=== PATIENT | male | born 1955 | race Caucasian/White ===

== ENCOUNTER 2016-09-10 22:04 | Observation (INO) | payer MEDICAID ==
[~2016-09-10] VITALS: Ht 172.7 cm; Wt 70.0 kg
[~2016-09-10 22:04] MED LIST: ACET325S8 PO
[2016-09-10 22:14] VITALS: BP 143/70; PULSE 85; RESP 18; TEMP 98.1; O2SAT 93
[2016-09-10 22:21] VITALS: BP_SYST 129; BP_SYST 143; BP_DIAS 57; BP_DIAS 70; PULSE 83; RESP 18; O2SAT 98
[2016-09-10] MEDS ORDERED: PRED5TAB PO (22:21)
[2016-09-10 22:22] VITALS: O2SAT 92
--- NOTE | 2016-09-10 22:23 | PD ---
HPI Chief Complaint: Chest Pain Time Seen by Provider: 22:05 Travel History International Travel<30 days: No Contact w/Intl Traveler<30days: No Traveled to known affect area: No History of Present Illness HPI This is a 52-year-old male who presents via EMS for evaluation of chest pain. The patient reports a history of colon cancer that has metastasized into his chest. He was recently receiving chemotherapy treatments in [place] near [place], most recent one month ago, but decided to cease chemotherapy efforts and return here to the [facility]. He is currently residing at the [facility]. He reports today at approximately 5:30 PM shortly after work he developed left-sided chest pain which she describes as sharp, constant, worse with walking and inspiration. He drank 4 beers an effort to alleviate the symptoms however the chest pain has persisted which prompted them to call the paramedics. He received 3 doses of sublingual nitroglycerin and has pain has reduced to a 4 out of 10. He took a full dose aspirin earlier today. He denies any shortness of breath, diaphoresis, cough or congestion, nausea or vomiting, abdominal pain, calf swelling, history of DVT or PE. He denies any personal history of coronary artery disease. He does endorse a history of hypertension, tobacco use. He reports that he has had similar pain 3-4 times over the course of the past few months but typically it resolves on its own. He has no other complaints at this time. [facility] Past Medical History Arthritis: Yes (IN BIG TOE) Diminished Hearing: No Hypertension: Yes Immunizations Current: Yes Social History Alcohol Use: Yes (4-5 BEERS PER DAY) Tobacco Use: Yes (1/2 PPD) Substance Use: Yes Allergies-Medications (Allergen,Severity, Reaction): Coded Allergies: No Known Allergies (Verified , 06/30/14) Reported Meds & Prescriptions Reported Meds & Active Scripts Active Reported Prednisone 5 Mg Tab 5 Mg PO DAILY Review of Systems Except as stated in HPI: all other systems reviewed are Neg Physical Exam Narrative GENERAL: Well-developed well-nourished male in no acute distress answering questions appropriately vital signs reviewed SKIN: Warm and dry. HEAD: Atraumatic. Normocephalic. EYES: Pupils equal and round. No scleral icterus. No injection or drainage. ENT: No nasal bleeding or discharge. Mucous membranes pink and moist. NECK: Trachea midline. No JVD. CARDIOVASCULAR: Regular rate and rhythm. No murmur appreciated. RESPIRATORY: No accessory muscle use. Clear to auscultation. Breath sounds equal bilaterally. No crackles no wheezing or rhonchi GASTROINTESTINAL: Abdomen soft, non-tender, nondistended. Hepatic and splenic margins not palpable. MUSCULOSKELETAL: No obvious deformities. No lower extremity edema, negative Homans bilaterally. NEUROLOGICAL: Awake and alert. No obvious cranial nerve deficits. Motor grossly within normal limits. Normal speech. PSYCHIATRIC: Appropriate mood and affect; insight and judgment normal. Data Data Last Documented VS Vital Signs Date Time Temp Pulse Resp B/P Pulse Ox O2 Delivery O2 Flow Rate FiO2 09/10/16 22:22 92 Room Air 09/10/16 22:21 83 18 143/70 129/57 09/10/16 22:14 98.1 Orders Electrocardiogram (09/10/16 22:18) Basic Metabolic Panel (Bmp) (09/10/16 22:18) Ckmb (Isoenzyme) Profile (09/10/16 22:18) Complete Blood Count With Diff (09/10/16 22:18) Magnesium (Mg) (09/10/16 22:18) Prothrombin Time / Inr (Pt) (09/10/16 22:18) Act Partial Throm Time (Ptt) (09/10/16 22:18) Troponin I (09/10/16 22:18) Chest, Single Ap (09/10/16 22:18) Ecg Monitoring (09/10/16 22:18) Bilateral Bp Monitoring (09/10/16 22:18) Iv Access Insert/Monitor (09/10/16 22:18) Oximetry (09/10/16 22:18) Oxygen Administration (09/10/16 22:18) Morphine Inj (Morphine Inj) (09/10/16 22:30) Sodium Chloride 0.9% Flush (Ns Flush) (09/10/16 22:30) Ct Pulmonary Angiogram (09/10/16 22:18) Iohexol 350 Inj (Omnipaque 350 Inj) (09/10/16 23:39) Admit Order (Ed Use Only) (09/11/16 00:17) Labs Laboratory Tests Test 09/10/16 22:25 White Blood Count 8.3 TH/MM3 Red Blood Count 4.26 MIL/MM3 Hemoglobin 13.5 GM/DL Hematocrit 39.0 % Mean Corpuscular Volume 91.6 FL Mean Corpuscular Hemoglobin 31.7 PG Mean Corpuscular Hemoglobin 34.7 % Concent Red Cell Distribution Width 13.4 % Platelet Count 204 TH/MM3 Mean Platelet Volume 7.8 FL Neutrophils (%) (Auto) 60.2 % Lymphocytes (%) (Auto) 29.4 % Monocytes (%) (Auto) 7.6 % Eosinophils (%) (Auto) 1.4 % Basophils (%) (Auto) 1.4 % Neutrophils # (Auto) 5.0 TH/MM3 Lymphocytes # (Auto) 2.4 TH/MM3 Monocytes # (Auto) 0.6 TH/MM3 Eosinophils # (Auto) 0.1 TH/MM3 Basophils # (Auto) 0.1 TH/MM3 CBC Comment DIFF FINAL Differential Comment Prothrombin Time 10.0 SEC Prothromb Time International 0.9 RATIO Ratio Activated Partial 25.8 SEC Thromboplast Time Sodium Level 140 MEQ/L Potassium Level 3.3 MEQ/L Chloride Level 106 MEQ/L Carbon Dioxide Level 24.8 MEQ/L Anion Gap 9 MEQ/L Blood Urea Nitrogen 8 MG/DL Creatinine 0.71 MG/DL Estimat Glomerular Filtration 114 ML/MIN Rate Random Glucose 103 MG/DL Calcium Level 8.1 MG/DL Magnesium Level 2.1 MG/DL Total Creatine Kinase 74 U/L Troponin I LESS THAN 0.02 NG/ML MDM Medical Decision Making Medical Screen Exam Complete: Yes Emergency Medical Condition: Yes Medical Record Reviewed: Yes Interpretation(s) EKG reveals sinus rhythm, Q waves noted in V1 and V2 Differential Diagnosis ACS, angina, pulmonary embolism, pericarditis, myocarditis, costochondritis, spontaneous pneumothorax, hemothorax Narrative Course This is a 60-year-old male reports a history of hypertension, tobacco use, colon cancer which has metastasized to the chest, recent chemotherapy, presents for evaluation of left-sided sharp chest pain which started at 5:30 PM and has been constant since. The patient will be placed on ECG monitoring and pulse oximetry. A 12-lead EKG will be obtained. Plan is for basic lab work, cardiac enzymes, chest x-ray, given his history of malignancy with recent chemotherapy, CT pulmonary angiogram has been ordered. The patient has taken a full dose aspirin today, was given 3 sublingual nitroglycerin via EMS continues to have decreased but persistent pain and therefore 4 mg of morphine has been ordered. 2245: At my shift the patient was signed out to Dr. Schultz pending lab work and imaging studies. Procedures EKG Prior to Arrival: Yes Venkatesh Gutierrez Sep 10, 2016 22:23
[2016-09-10] MEDS ORDERED: MORPHINE SULFATE 4 MG/ML INJ IV PUSH ONE (22:30)
[2016-09-10] MEDS ORDERED: SODIUM CHLORIDE 0.9% FLUSH 10 ML FLUSH IVF PRN (22:30)
--- NOTE | 2016-09-10 22:39 | RADRPT ---
EXAM DATE/TIME: 09/10/2016 22:24 [facility] COMPARISON: No previous studies available for comparison. INDICATIONS : Chest pain. Short of breath. MEDICAL HISTORY : Carcinoma, lung. SURGICAL HISTORY : Infusaport. ENCOUNTER: Initial ACUITY: 1 day PAIN SCORE: 3/10 LOCATION: Bilateral chest FINDINGS: A single view of the chest demonstrates the lungs to be symmetrically aerated without evidence of mas s, infiltrate or effusion. Left-sided portacatheter with tip in the cavoatrial junction. The cardiome diastinal contours are unremarkable. Osseous structures are intact. CONCLUSION: No acute disease. Toney Rogers MD on September 10, 2016 at 22:36 Board Certified Radiologist. This report was verified electronically.
[2016-09-10 22:57] LABS: BASOPHIL # 0.1 TH/MM3 (0-0.2); BASOPHIL % 1.4 % (0.0-2.0); EOSINOPHIL # 0.1 TH/MM3 (0-0.4); EOSINOPHIL % 1.4 % (0.0-4.0); HEMO FLAGS DIFF FINAL; LYMPH % 29.4 % (9.0-44.0); LYMPHOCYTE # 2.4 TH/MM3 (1.0-4.8); MEAN CELL VOLUME 91.6 FL (80.0-100.0); MEAN CORPUSCULAR HEMOGLOBIN 31.7 PG (27.0-34.0); MEAN CORPUSCULAR HGB CONC 34.7 % (32.0-36.0); MONO % 7.6 % (0.0-8.0); NEUT % 60.2 % (16.0-70.0); PLATELET COUNT 204 TH/MM3 (150-450); RED BLOOD COUNT 4.26 MIL/MM3 (4.50-5.90); RED CELL DISTRIBUTION WIDTH 13.4 % (11.6-17.2); WHITE BLOOD COUNT 8.3 TH/MM3 (4.0-11.0)
--- NOTE | 2016-09-10 23:00 | PD ---
Physical Exam Date Seen by Provider: Sep 10, 2016 Time Seen by Provider: 22:59 Narrative The patient is a 60-year-old male was initially evaluated by the mid-level provider. Please refer to the initial history, physical, diagnostic evaluation , and treatment modality plan. Data Data Last Documented VS Vital Signs Date Time Temp Pulse Resp B/P Pulse Ox O2 Delivery O2 Flow Rate FiO2 09/10/16 22:22 92 Room Air 09/10/16 22:21 83 18 143/70 129/57 09/10/16 22:14 98.1 Orders Electrocardiogram (09/10/16 22:18) Basic Metabolic Panel (Bmp) (09/10/16 22:18) Ckmb (Isoenzyme) Profile (09/10/16 22:18) Complete Blood Count With Diff (09/10/16 22:18) Magnesium (Mg) (09/10/16 22:18) Prothrombin Time / Inr (Pt) (09/10/16 22:18) Act Partial Throm Time (Ptt) (09/10/16 22:18) Troponin I (09/10/16 22:18) Chest, Single Ap (09/10/16 22:18) Ecg Monitoring (09/10/16 22:18) Bilateral Bp Monitoring (09/10/16 22:18) Iv Access Insert/Monitor (09/10/16 22:18) Oximetry (09/10/16 22:18) Oxygen Administration (09/10/16 22:18) Morphine Inj (Morphine Inj) (09/10/16 22:30) Sodium Chloride 0.9% Flush (Ns Flush) (09/10/16 22:30) Ct Pulmonary Angiogram (09/10/16 22:18) Iohexol 350 Inj (Omnipaque 350 Inj) (09/10/16 23:39) Labs Laboratory Tests Test 09/10/16 22:25 White Blood Count 8.3 TH/MM3 Red Blood Count 4.26 MIL/MM3 Hemoglobin 13.5 GM/DL Hematocrit 39.0 % Mean Corpuscular Volume 91.6 FL Mean Corpuscular Hemoglobin 31.7 PG Mean Corpuscular Hemoglobin 34.7 % Concent Red Cell Distribution Width 13.4 % Platelet Count 204 TH/MM3 Mean Platelet Volume 7.8 FL Neutrophils (%) (Auto) 60.2 % Lymphocytes (%) (Auto) 29.4 % Monocytes (%) (Auto) 7.6 % Eosinophils (%) (Auto) 1.4 % Basophils (%) (Auto) 1.4 % Neutrophils # (Auto) 5.0 TH/MM3 Lymphocytes # (Auto) 2.4 TH/MM3 Monocytes # (Auto) 0.6 TH/MM3 Eosinophils # (Auto) 0.1 TH/MM3 Basophils # (Auto) 0.1 TH/MM3 CBC Comment DIFF FINAL Differential Comment Prothrombin Time 10.0 SEC Prothromb Time International 0.9 RATIO Ratio Activated Partial 25.8 SEC Thromboplast Time Sodium Level 140 MEQ/L Potassium Level 3.3 MEQ/L Chloride Level 106 MEQ/L Carbon Dioxide Level 24.8 MEQ/L Anion Gap 9 MEQ/L Blood Urea Nitrogen 8 MG/DL Creatinine 0.71 MG/DL Estimat Glomerular Filtration 114 ML/MIN Rate Random Glucose 103 MG/DL Calcium Level 8.1 MG/DL Magnesium Level 2.1 MG/DL Total Creatine Kinase 74 U/L Troponin I LESS THAN 0.02 NG/ML [facility] Medical Record Reviewed: Yes Supervised Visit with LYNN: Yes Interpretation(s) EKG reveals normal sinus rhythm with a rate of 82. Q wave noted in lead V1 and V2. Laboratory Tests Test 09/10/16 22:25 White Blood Count 8.3 TH/MM3 Red Blood Count 4.26 MIL/MM3 Hemoglobin 13.5 GM/DL Hematocrit 39.0 % Mean Corpuscular Volume 91.6 FL Mean Corpuscular Hemoglobin 31.7 PG Mean Corpuscular Hemoglobin 34.7 % Concent Red Cell Distribution Width 13.4 % Platelet Count 204 TH/MM3 Mean Platelet Volume 7.8 FL Neutrophils (%) (Auto) 60.2 % Lymphocytes (%) (Auto) 29.4 % Monocytes (%) (Auto) 7.6 % Eosinophils (%) (Auto) 1.4 % Basophils (%) (Auto) 1.4 % Neutrophils # (Auto) 5.0 TH/MM3 Lymphocytes # (Auto) 2.4 TH/MM3 Monocytes # (Auto) 0.6 TH/MM3 Eosinophils # (Auto) 0.1 TH/MM3 Basophils # (Auto) 0.1 TH/MM3 CBC Comment DIFF FINAL Differential Comment Prothrombin Time 10.0 SEC Prothromb Time International 0.9 RATIO Ratio Activated Partial 25.8 SEC Thromboplast Time Sodium Level 140 MEQ/L Potassium Level 3.3 MEQ/L Chloride Level 106 MEQ/L Carbon Dioxide Level 24.8 MEQ/L Anion Gap 9 MEQ/L Blood Urea Nitrogen 8 MG/DL Creatinine 0.71 MG/DL Estimat Glomerular Filtration 114 ML/MIN Rate Random Glucose 103 MG/DL Calcium Level 8.1 MG/DL Magnesium Level 2.1 MG/DL Total Creatine Kinase 74 U/L Troponin I LESS THAN 0.02 NG/ML Last Impressions Chest X-Ray 09/10/162217 Signed Impressions: Service Date/Time: Saturday, September 10, 2016 22:24 - CONCLUSION: No acute disease. Toney Rogers MD CT Angiography 09/10/162217 Signed Impressions: Service Date/Time: Saturday, September 10, 2016 23:38 - CONCLUSION: 1. No PE is identified. 2. There is a partially calcified soft tissue mass in the anterior mediastinum measuring up to 3.8 cm. The clinical history indicates a known tumor in chest. Suggest correlation with the clinical history to determine if this is a known finding. Differential diagnosis would include metastatic disease, lymphoma, or thymic lesions. Fitz Hernandez MD Differential Diagnosis Differential diagnosis includes acute coronary syndrome, pulmonary embolism, GERD, esophageal spasm, metastatic cancer, gastritis, pancreatitis. Narrative Course I, Dr. Schultz, have reviewed the advance practice practitioner's documentation and am in agreement, met with the patient face to face, made the diagnosis, and the medical decision making was done by me. *My assessment and Findings: The patient is a 60-year-old male was initially evaluated by the mid-level provider. Please refer to the initial history, physical, diagnostic evaluation, and treatment modality plan. The patient was signed out [address] pulmonary angiogram and laboratory evaluation pending. The patient's initial troponin is unremarkable. The patient does state he has a history of colon cancer, was undergoing chemotherapy, however, did not tolerate it. He also states he has a "spot on the lung "from the cancer. He does have a history of hypertension and tobacco use, denies any known history of hyperlipidemia, CAD, diabetes, or significant early family medical history for heart disease. I had a discussion with the patient regarding initial troponin being negative, after discussion was agreed he would be 23 hour observation to the chest pain Center as he does not have a local primary physician or access to healthcare. The patient is comfortable with this plan of care and disposition. The CT pulmonary angiogram is negative for PE, does reveal 3.8 cm anterior chest mass, the patient has a history of chest mass and states that is a known finding, is not acute, I do not believe that is causing his pain. Physician Communication Physician Communication The patient will be a 23 OBS to the [facility] for serial cardiac enzymes and further evaluation by cardiology. Diagnosis Primary Impression: Chest pain Qualified Code: R07.9 - Chest pain, unspecified type Admitting Information Admitting Physician Requests: Observation Condition: Stable Aba Schultz MD Sep 10, 2016 23:00
[2016-09-10 23:13] LABS: ANION GAP 9 MEQ/L (5-15); BICARBONATE 24.8 MEQ/L (21.0-32.0); BLOOD UREA NITROGEN 8 MG/DL (7-18); CHLORIDE 106 MEQ/L (98-107); GLOMERULAR FILTRATION RATE 114 ML/MIN (>89); MAGNESIUM 2.1 MG/DL (1.5-2.5); POTASSIUM 3.3 MEQ/L (3.5-5.1); SODIUM (NA) 140 MEQ/L (136-145)
[2016-09-10 23:14] LABS: APTT (PATIENT) 25.8 SEC (24.3-30.1); INTERNATIONAL NORMALIZED RATIO 0.9 RATIO
[2016-09-10 23:24] LABS: CREATINE KINASE 74 U/L (39-308)
[2016-09-10] MEDS ORDERED: IOHEXOL 350 MG/ML 10 ML VIAL (for RAD DIAG) IV ONE (23:39)
--- NOTE | 2016-09-10 23:57 | RADRPT ---
EXAM DATE/TIME: 09/10/2016 23:38 [facility] COMPARISON: No previous studies available for comparison. INDICATIONS : Chest pain with shortness of breath. IV CONTRAST: 74 cc Omnipaque 350 (iohexol) IV RADIATION DOSE: 23.30 CTDIvol (mGy) MEDICAL HISTORY : Hypertension. Colon cancer. Tumor in chest. SURGICAL HISTORY : None. ENCOUNTER: Initial ACUITY: 1 day PAIN SCALE: 10/10 LOCATION: chest TECHNIQUE: Volumetric scanning of the chest was performed using a pulmonary embolism protocol MIP images were re constructed. Using automated exposure control and adjustment of the mA and/or kV according to patien t size, radiation dose was kept as low as reasonably achievable to obtain optimal diagnostic quality images. DICOM format image data is available electronically for review and comparison. Follow-up recommendations for incidentally detected pulmonary nodules are based at a minimum on nodul e size and patient risk factors according to Fleischner Society Guidelines. FINDINGS: There is respiratory motion artifact. PULMONARY ARTERIES: No filling defects are seen in the pulmonary arteries through the segmental level. LUNGS: There is no consolidation or pneumothorax . No concerning pulmonary nodule is visualized. PLEURAE: There is no pleural thickening or pleural effusion. MEDIASTINUM: Heart and great vessels demonstrate no acute finding. There is moderate atherosclerotic disease of ao rta appear within the anterior mediastinum there is a partially calcified soft tissue mass measuring approximately 3.8 x 2.8 cm. Left chest wall [id number] is present. MUSCULOSKELETAL: There are degenerative changes of the thoracic spine. MISCELLANEOUS: The visualized upper abdominal organs demonstrate no acute abnormality. CONCLUSION: 1. No PE is identified. 2. There is a partially calcified soft tissue mass in the anterior mediastinum measuring up to 3.8 cm . The clinical history indicates a known tumor in chest. Suggest correlation with the clinical histor y to determine if this is a known finding. Differential diagnosis would include metastatic disease, l ymphoma, or thymic lesions. Fitz Hernandez MD on September 10, 2016 at 23:49 Board Certified Radiologist. This report was verified electronically.
[2016-09-11] MEDS ORDERED: ONDANSETRON HCL 4 MG/2 ML VIAL IV PRN (00:30)
[2016-09-11] MEDS ORDERED: ACETAMINOPHEN/HYDROcodone 325 MG/7.5 MG TAB PO PRN (00:30)
[2016-09-11] MEDS ORDERED: ACETAMINOPHEN 500 MG CPLT PO PRN (00:30)
[2016-09-11] MEDS ORDERED: POTASSIUM CHLORIDE 20 MEQ CONTROLLED RELEASE TAB PO ONE (00:30)
[2016-09-11] MEDS ORDERED: SODIUM CHLORIDE 0.9% FLUSH 10 ML FLUSH IV FLUSH PRN (00:30)
[2016-09-11] MEDS ORDERED: NITROGLYCERIN 0.4 MG SL 25 TABS/BTL SL PRN (00:30)
[2016-09-11] MEDS ORDERED: MORPHINE SULFATE 4 MG/ML INJ IV PRN (00:30)
[2016-09-11 01:21] VITALS: BP 127/78; PULSE 71; RESP 18; O2SAT 98
[2016-09-11 02:02] LABS: CREATINE KINASE 64 U/L (39-308)
[2016-09-11 04:39] LABS: CREATINE KINASE 64 U/L (39-308)
[2016-09-11 05:23] VITALS: BP 130/67; PULSE 65; RESP 16; O2SAT 98
--- NOTE | 2016-09-11 08:15 | HHI.HP ---
HPI Primary Care Physician No Primary Care Physician Chief Complaint Chest pain History of Present Illness 60-year-old male with known colon cancer with metastases to chest presents to emergency room for further evaluation of chest pain. Location left anterior chest. Characterized as sharp quick pains. Duration 34 hours. No radiation of pain. No particular position or position may pain better or worse. It did not hurt to take a deep breath. No associated symptoms of nausea, vomiting, or diaphoresis. Endorses it is not uncommon for him to experience similar pain although states yesterday's episode pains increase in frequency and duration therefore he came emergency room for further evaluation of chest pain. Precipitating factors he relates to a known chest tumor. No known relieving factors. Review of Systems General: Quit chemotherapy one month ago. Oncologist located in [place], [place]. Quit chemotherapy due "making me feel worse." Oncologist told him he would require chemotherapy for the rest of his life. No recent illness, weakness, fever, chills, change in appetite. HEENT: No ALEJANDRO, no vision changes, no nasal congestion or drainage, no dysphasia CV: As stated above. Denies any current chest pain or pressure. RESP: No SOB, cough, wheeze, or hemoptysis. History of COPD. GI: No nausea, vomiting, bowel changes, diarrhea, constipation, pain, distention , melena or bloody stools. : No dysuria EXT: No lower leg edema MS: No discomfort or change in ROM NEURO: No difficulty with balance, LOC, or motor/sensory deficits PSYCH: No anxiety or depression. Endorses situational stress regarding cancer diagnosis. SKIN: No rashes, no concerning lesions Past Family Social History Allergies: Coded Allergies: No Known Allergies (Verified , 06/30/14) Past Medical History Colon cancer with metastases to chest, hypertension Past Surgical History MediPort placement, 2 biopsy Reported Medications Reported Prednisone 5 Mg Tab 5 Mg PO DAILY Active Ordered Medications Current Medications Medications (Trade) Dose Ordered Sig/Blanca Route Start Time Stop Time Status Last Admin (Tylenol) 500 mg Q4H PRN PO 09/11/16 00:30 ([place] 7.5-325 Mg) 1 tab Q4H PRN PO 09/11/16 00:30 (Morphine Inj) 2 mg Q4H PRN IV 09/11/16 00:30 (Zofran Inj) 4 mg Q6H PRN IV 09/11/16 00:30 (Nitrostat Sl) 0.4 mg Q5M PRN SL 09/11/16 00:30 (Aspirin) 325 mg DAILY PO 09/11/16 09:00 Family History Noncontributory for early onset cardiovascular disease. Social History No known diabetes or hyperlipidemia. Reports hypertension although not taking any medications currently. Lifelong smoker, currently smokes one half pack daily. Denies any illegal drug use. Endorses occasional alcohol. Currently residing at a homeless [facility]. Past cardiac testing No recent cardiac testing. Remote exercise treadmill stress test in his 20s. Physical Exam Vital Signs Vital Signs Date Time Temp Pulse Resp B/P Pulse Ox O2 Delivery O2 Flow Rate FiO2 09/11/16 06:07 21 09/11/16 05:23 65 16 130/67 98 Room Air 09/11/16 01:21 71 18 127/78 98 Room Air 09/10/16 22:22 92 Room Air 09/10/16 22:22 92 Room Air 09/10/16 22:21 83 18 143/70 98 Room Air 129/57 09/10/16 22:14 98.1 85 18 143/70 93 Physical Exam GENERAL: Alert WN, WD, NAD, pleasant, , thin male. HEAD: NC, AT EYES: Sclera clear, conjunctiva without injection, pupils equal and round ENT: Mucous membranes pink and moist NECK: Supple, no masses, trachea midline CV: RRR, without murmur, rub, gallop, no JVD, S1-S2 no S3-S4. RESP: Clear lungs throughout bilateral, no crackles, wheeze, rhonchi, symmetrical chest rise, nonlabored, able to speak in full sentences ABD: Soft, NT, ND, no masses, positive bowel tones, flat EXT: Pulses +24, no dependent edema MS: Normal tone 4 extremities, nontender, no obvious deformities, full range of motion NEURO: CN II through CN XII grossly intact, motor strength 5/5, gait WNL PSYCH: A+O 3, pleasant affect, appropriate speech, appropriate mood and affect , insight and judgment SKIN: Normal turgor, normal texture Laboratory Laboratory Tests Test 09/10/16 09/11/16 09/11/16 22:25 01:20 03:44 White Blood Count 8.3 Red Blood Count 4.26 Hemoglobin 13.5 Hematocrit 39.0 Mean Corpuscular Volume 91.6 Mean Corpuscular Hemoglobin 31.7 Mean Corpuscular Hemoglobin 34.7 Concent Red Cell Distribution Width 13.4 Platelet Count 204 Mean Platelet Volume 7.8 Neutrophils (%) (Auto) 60.2 Lymphocytes (%) (Auto) 29.4 Monocytes (%) (Auto) 7.6 Eosinophils (%) (Auto) 1.4 Basophils (%) (Auto) 1.4 Neutrophils # (Auto) 5.0 Lymphocytes # (Auto) 2.4 Monocytes # (Auto) 0.6 Eosinophils # (Auto) 0.1 Basophils # (Auto) 0.1 CBC Comment DIFF FINAL Differential Comment Prothrombin Time 10.0 Prothromb Time International 0.9 Ratio Activated Partial 25.8 Thromboplast Time Sodium Level 140 Potassium Level 3.3 Chloride Level 106 Carbon Dioxide Level 24.8 Anion Gap 9 Blood Urea Nitrogen 8 Creatinine 0.71 Estimat Glomerular Filtration 114 Rate Random Glucose 103 Calcium Level 8.1 Magnesium Level 2.1 Total Creatine Kinase 74 64 64 Troponin I LESS THAN 0.02 LESS THAN 0.02 LESS THAN 0.02 Result Diagram: 09/10/16222409/10/162224 Imaging Last Impressions Chest X-Ray 09/10/162217 Signed Impressions: Service Date/Time: Saturday, September 10, 2016 22:24 - CONCLUSION: No acute disease. Toney Rogers MD CT Angiography 09/10/162217 Signed Impressions: Service Date/Time: Saturday, September 10, 2016 23:38 - CONCLUSION: 1. No PE is identified. 2. There is a partially calcified soft tissue mass in the anterior mediastinum measuring up to 3.8 cm. The clinical history indicates a known tumor in chest. Suggest correlation with the clinical history to determine if this is a known finding. Differential diagnosis would include metastatic disease, lymphoma, or thymic lesions. Fitz Hernandez MD Course EKGs Normal sinus rhythm, septal Q waves, no ST or T-segment changes Assessment and Plan Assessment and Plan #1 Chest painadmitted to chest pain center. Ruled out with 3 sets of EKGs, cardiac enzymes, and monitored overnight. Seen and evaluated by Dr. Renae Childers. No further cardiac testing due to current colon cancer with reported metastasis. He would not be a candidate for any invasive treatments. Strongly encouraged to establish with a primary care provider locally. Chest discomfort atypical for cardiac pain most likely related to his known chest tumor. #2 Colon cancer with metastasisstrongly encouraged to establish with an oncologist locally and or to follow-up with oncologist in [place]. Spoke in length regarding hospice care as an option if he chooses not to continue cancer treatments. Spoke with our case management regarding any possible community resources for him. patient has medical insurance, therefore does not qualify for [facility]. #3 Tobacco usestrongly encouraged and stressed importance of tobacco sensation. Discussed and counseled patient to quit smoking. #4 Hypertensionnormotensive throughout stay, no additional medications required at this time. Establish with a primary care provider for follow-up. Gris Johnson Sep 11, 2016 08:15
[2016-09-11 09:00] VITALS: BP 134/66; PULSE 68; RESP 16; O2SAT 99
[2016-09-11] MEDS ORDERED: predniSONE 5 MG TAB PO SCH (09:00)
[2016-09-11] MEDS ORDERED: SODIUM CHLORIDE 0.9% FLUSH 10 ML FLUSH IV FLUSH SCH (09:00)
[2016-09-11] MEDS ORDERED: ASPIRIN 325 MG TAB PO SCH (09:00)
--- NOTE | 2016-09-11 09:06 | HHI.DCPOC ---
Discharge Care Plan Diagnosis: (1) Atypical chest pain (2) Tobacco abuse (3) Metastasis from colon cancer Goals to Promote Your Health * To prevent worsening of your condition and complications * To maintain your health at the optimal level Directions to Meet Your Goals Take your medications as prescribed Follow your dietary instruction Follow activity as directed Keep your appointments as scheduled Take your immunizations and boosters as scheduled If your symptoms worsen call your PCP, if no PCP go to Urgent Care Center or Emergency Room Smoking is Dangerous to Your Health. Avoid second hand smoke Call the 24-hour hour crisis hotline for domestic abuse at Gris Johnson Sep 11, 2016 09:06
--- NOTE | 2016-09-11 12:14 | EKG ---
Date Performed: 09/11/2016 Time Performed: 04:59:22 PTAGE: 60 years EKG: Sinus rhythm SEPTAL MYOCARDIAL INFARCTION ABNORMAL ECG Since PREVIOUS TRACING , no significant change noted PREVIOUS TRACIN09/10/2016 22.13 DOCTOR: Renae Childers Interpretating Date/Time 09/11/2016 12:13:48
--- NOTE | 2016-09-11 12:15 | EKG ---
Date Performed: 09/10/2016 Time Performed: 22:13:19 PTAGE: 60 years EKG: Sinus rhythm NO PREVIOUS TRACING DOCTOR: Renae Childers Interpretating Date/Time 09/11/2016 12:14:47
--- NOTE | 2016-09-11 12:16 | EKG ---
Date Performed: 09/11/2016 Time Performed: 01:20:13 PTAGE: 60 years EKG: Sinus rhythm SEPTAL MYOCARDIAL INFARCTION ABNORMAL ECG Since PREVIOUS TRACING , no significant change noted DOCTOR: Renae Childers Interpretating Date/Time 09/11/2016 12:15:16
== END 2016-09-11 12:58 | disposition home or self-care (01) ==
LOC: NEPE 22:04 → NEDA 09-11 00:18 → NEDH 09-11 04:18
PROVIDERS: ADMIT Internal Medicine Cardiovascular Disease; ATTEND Internal Medicine Cardiovascular Disease
DX: R07.89 Other chest pain (principal); I10 Essential (primary) hypertension; F17.210 Nicotine dependence, cigarettes, uncomplicated; C18.9 Malignant neoplasm of colon, unspecified; C79.89 Secondary malignant neoplasm of other specified sites; Z79.899 Other long term (current) drug therapy; R94.31 Abnormal electrocardiogram [ECG] [EKG]
CPT/HCPCS: 71010; 71275; 80048; 82550; 83735; 84484; 85025; 85610; 85730; 93005; 96374; 99285; G0378; J2270; J7512; Q9967

== ENCOUNTER 2017-01-11 10:12 | Emergency (ER) | payer MEDICAID ==
[~2017-01-11] VITALS: Ht 172.7 cm; Wt 62.0 kg
[~2017-01-11 10:12] MED LIST changes: -ACET325S8 PO; +PRED5TAB PO
[2017-01-11 10:20] VITALS: BP 142/88; PULSE 102; RESP 16; TEMP 97.8; O2SAT 97
[2017-01-11 10:50] VITALS: BP 154/70; PULSE 81; RESP 18; O2SAT 98
[2017-01-11] MEDS ORDERED: bp PO (10:51)
--- NOTE | 2017-01-11 11:11 | PD ---
HPI Chief Complaint: Respiratory Symptoms Time Seen by Provider: 11:11 Travel History International Travel<30 days: No Contact w/Intl Traveler<30days: No Traveled to known affect area: No History of Present Illness HPI She 11-year-old male presents emergency Department with complaint of left hip pain 11 hours and shortness of breath that onset this morning. He has history of COPD. History of colon cancer with metastasis. Denies new or recent injury causing hip pain. Describes the pain as throbbing and is worse with walking. 0 /10 hip pain at rest. 10/10 with walking. Denies paresthesias, loss of sensation to the affected extremity. Denies fevers, vomiting. Has not taken any medications or tried any treatments to symptoms. Shortness of breath is "not so much right now, but a little bit." Positive tobacco use. Says he had a cough for years. Denies chest pain. Shortness of breath is worse with activity and better at rest. He hasn't used his inhaler because he lost. Reports wheezing and chest congestion. Denies abdominal pain, vomiting. No known allergies. Primary care provider is Dr. Selby. History of COPD, hypertension, colon cancer. Last did chemotherapy 6 months ago but has been advised he should be continuing it. Has no other medical complaints. No other modifying factors or associated signs and symptoms. PFSH Past Medical History Arthritis: Yes (IN BIG TOE) Cancer: Yes (tumor next to heart/lungs, bowel) Diminished Hearing: No Hypertension: Yes Immunizations Current: Yes Influenza Vaccination: No Past Surgical History Other Surgery: Yes (left subclavian port, colonoscopy ) Social History Alcohol Use: Yes (4-5 BEERS PER DAY) Tobacco Use: Yes (1/2 PPD) Substance Use: No Allergies-Medications (Allergen,Severity, Reaction): Coded Allergies: No Known Allergies (Verified Adverse Reaction, Unknown, 01/11/17) Reported Meds & Prescriptions Reported Meds & Active Scripts Active Walker/Adult/Folding (Device) 1 Mis Mis Ea .ROUTE DIRECTED Ventolin Hfa 18 GM Inh (Albuterol Sulfate) 90 Mcg/Act Aer 2 Puff INH Q4-6H PRN Reported [bp] 1 Tab PO EVERY OTHER DAY Review of Systems Except as stated in HPI: all other systems reviewed are Neg Physical Exam Narrative GENERAL: Thin, male patient, in no acute distress; afebrile, nontoxic- appearing; disheveled and foul smelling SKIN: Warm and dry. HEAD: Atraumatic. Normocephalic. EYES: Pupils equal and round. No scleral icterus. No injection or drainage. ENT: Mucosa pink and moist. Airway patent. NECK: Trachea midline. CARDIOVASCULAR: Regular rate and rhythm. No murmur appreciated. RESPIRATORY: No accessory muscle use. Lungs sounds clear; left lower lung with decreased lung sounds. No wheezing on auscultation. GASTROINTESTINAL: Abdomen soft, non-tender, nondistended. Positive bowel sounds. No hepato-splenomegaly, or palpable masses. No guarding. MUSCULOSKELETAL: Left hip with full range of motion; without erythema, edema, or ecchymosis; left tenderness on abduction; tenderness on palpation to the anterior and lateral aspect; no obvious deformity; no leg length discrepancy. Left lower extremity is supple and non-tense with 2+ pedal pulse and sensory intact and without erythema or edema. NEUROLOGICAL: Awake and alert. Oriented 3. No obvious cranial nerve deficits. Motor grossly within normal limits. Normal speech. PSYCHIATRIC: Appropriate mood and affect; insight and judgment normal. Data Data Last Documented VS Vital Signs Date Time Temp Pulse Resp B/P (MAP) Pulse Ox O2 Delivery O2 Flow Rate FiO2 01/11/17 10:50 81 18 154/70 (98) 98 Room Air 01/11/17 10:20 97.8 Orders Orders Chest, Single Ap (01/11/17 11:11) Albuterol Neb (Albuterol Neb) (01/11/17 11:15) Hip, Uni(Ap&Lat) W Ap Pelvis (01/11/17 11:13) [facility] Medical Decision Making Medical Screen Exam Complete: Yes Emergency Medical Condition: Yes Medical Record Reviewed: Yes Differential Diagnosis Arthritis, bone metastasis, COPD exacerbation, pneumonia Narrative Course 61-year-old male with history of colon cancer with metastasis, COPD, and hypertension complaining of left hip pain and shortness of breath. Patient is in no acute distress and lung sounds are without wheezing. Oxygen saturation is 97% on room air. The patient appears comfortable lying in bed. The patient was discussed with the attending physician, Dr. Sutton, and he agrees with my plan of care. Chest x-ray, albuterol nebulizer, left hip x-ray ordered. Hip and Pelvis X-Ray 01/11/17 1113 Signed Impressions: Service Date/Time: Wednesday, January 11, 2017 11:41 - CONCLUSION: Unremarkable examination of the left hip except for question a loose body posterior to the hip. Gus Rodrigues MD Chest X-Ray 01/11/17 1111 Signed Impressions: Service Date/Time: Wednesday, January 11, 2017 11:46 - CONCLUSION: Normal examination. Left subclavian [id number] in excellent position Gus Rodrigues MD 1240: On reexamination the patient is lying in the bed sleeping comfortably. He denies shortness of breath. Lung sounds are clear and equal throughout. Hip x-ray and chest x-ray findings discussed with the patient. I discussed the patient with Dr. Sutton and he agrees with discharge. Ventolin inhaler and walker prescribed for home. Instructed patient to follow up with primary care provider. Patient verbalizes understanding and agreement with treatment plan. Patient is medically cleared and stable for discharge. Discussed reasons to return to the emergency department. Patient agrees with treatment plan. The patients vital signs are stable and the patient is stable for outpatient follow- up and treatment. Patient discharged home, stable and in no acute distress. Diagnosis Primary Impression: Left hip pain Additional Impression: Shortness of breath Referrals: [facility] Primary Care Physician [employer] Patient Instructions: COPD (Chronic Obstructive Pulmonary Disease) (ED), General Instructions, Hip Pain (ED) Additional Instructions: Use albuterol inhaler as needed for shortness of breath and/or wheezing Avoid asthma triggers such as smoking cigarettes, second hand smoke, dust, known allergens Walker as needed for support Ibuprofen or Tylenol as directed and as needed for pain Follow-up with primary care provider Follow-up with orthopedics as needed Return to emergency department immediately with worsening of symptoms Med/Other Pt SpecificInfo: Prescription(s) given Scripts Walker/Adult/Folding (Walker/Adult/Folding) 1 Mis Mis EA .ROUTE DIRECTED, #1 0 Refills Prov: Brittani Groves 01/11/17 Albuterol 18 GM Inh (Ventolin Hfa 18 GM Inh) 90 Mcg/Act Aer 2 PUFF INH Q4-6H Y for SHORTNESS OF BREATH, #1 INHALER 0 Refills Prov: Brittani Groves 01/11/17 Disposition: 01 DISCHARGE HOME Condition: Stable Brittani Groves Jan 11, 2017 11:11
[2017-01-11] MEDS ORDERED: RESP: ALBUTEROL 2.5 MG/3 ML NEB (SCH) INH ONE (11:15)
--- NOTE | 2017-01-11 12:14 | RADRPT ---
EXAM DATE/TIME: 01/11/2017 11:41 [facility] COMPARISON: No previous studies available for comparison. INDICATIONS : Left hip pain, no known injury. MEDICAL HISTORY : Hypertension. Arthritis. Smoker. Carcinoma, colon. Tumor next to heart. SURGICAL HISTORY : Infusaport. ENCOUNTER: Initial ACUITY: 1 day PAIN SCORE: 10/10 LOCATION: Left hip FINDINGS: Examination of the left hip was performed with AP Pelvis. The primary and secondary trabecular patte rn of the femoral neck is intact. The hip joint is of normal width without significant sclerosis or bony hypertrophy. The acetabulum is grossly intact. Small ossific fragment posterior to the hip coul d be a loose body CONCLUSION: Unremarkable examination of the left hip except for question a loose body posterior to the hip. Gus Rodrigues MD on January 11, 2017 at 12:12 Board Certified Radiologist. This report was verified electronically.
--- NOTE | 2017-01-11 12:15 | RADRPT ---
EXAM DATE/TIME: 01/11/2017 11:46 [facility] COMPARISON: CHEST SINGLE AP, September 10, 2016, 22:24. INDICATIONS : Shortness of breath. MEDICAL HISTORY : Hypertension. Arthritis. Smoker. Carcinoma, colon. Tumor next to heart. SURGICAL HISTORY : Infusaport. ENCOUNTER: Initial ACUITY: 1 day PAIN SCORE: 0/10 LOCATION: Bilateral chest FINDINGS: A single view of the chest demonstrates the lungs to be symmetrically aerated without evidence of mas s, infiltrate or effusion. The cardiomediastinal contours are unremarkable. Osseous structures are intact. CONCLUSION: Normal examination. Left subclavian [id number] in excellent position Gus Rodriguse MD on January 11, 2017 at 12:13 Board Certified Radiologist. This report was verified electronically.
[2017-01-11] MEDS ORDERED: WALKER/ADULT/FO1 MIS (12:41)
[2017-01-11] MEDS ORDERED: VENTAER INH (12:41)
== END 2017-01-11 13:00 | disposition home or self-care (01) ==
LOC: NEPE 10:12
DX: M25.552 Pain in left hip (principal); R06.02 Shortness of breath; J44.9 Chronic obstructive pulmonary disease, unspecified; I10 Essential (primary) hypertension; Z72.0 Tobacco use; Z85.038 Personal history of other malignant neoplasm of large intestine
CPT/HCPCS: 71010; 73502; 94664; 99284; J7613

== ENCOUNTER 2017-12-28 10:07 | Observation (INO) ==
--- NOTE | 2017-12-28 11:16 | XR ---
EXAM DATE: 12/28/2017 11:14 AM EST AGE/SEX: 62 years / Male INDICATIONS: Chest pain. CLINICAL DATA: This is the patient's initial encounter. Patient reports that signs and symptoms have been present for 1 day and indicates a pain score of 7/10. MEDICAL/SURGICAL HISTORY: . Hypertension. Arthritis. Smoker. Carcinoma, colon. Tumor next to he art. . PORT PLACEMENT COMPARISON: [facility] [place], CHEST SINGLE AP, 01/11/2017. . FINDINGS: A single AP view of the chest demonstrates the lungs to be symmetrically aerated without evidence of mass, infiltrate or effusion. The cardiomediastinal contours are unremarkable. Osseous structures a re intact. Left-sided portacatheter is present and the tip overlies the SVC. CONCLUSION: Clear lungs. Electronically signed by: Williams Palma MD 12/28/2017 11:15 AM EST
--- NOTE | 2017-12-28 11:42 | ED ---
HPI General Chief Complaint: Chest Pain Stated Complaint: chest pain Time Seen by Provider: 12/28/17 10:55 Source: patient Mode of arrival: EMS Limitations: no limitations History of Present Illness HPI narrative: 62 y/o male states that he developed chest pain last night. He denies other associated symptoms. He was given aspirin and 1 nitroglycerin in the ambulance and his pain improved some but is still present. He states it is currently 3 out of 10. Quality is pressure. He denies specific modifying factors. He denies prior cardiac issues but notes that in [place] he was diagnosed with colon cancer that spread to his heart and lungs and he was getting treatment but then he decided to move away from that area and for 1 year has been off treatment. He states he does not have a local oncologist but does have a primary doctor. He states that he would like aggressive care. Related Data Home Medications Medication Instructions Recorded Confirmed lisinopril 10 mg PO DAILY 12/28/17 12/28/17 Allergies Allergy/AdvReac Type Severity Reaction Status Date / Time No Known Allergies Allergy Verified 12/28/17 10:56 Review of Systems ROS: all other systems reviewed are negative [facility] Medical History Medical History Colon cancer (Acute) HTN (hypertension) (Acute) History of chemotherapy (Acute) Port-A-Cath in place (Acute) Social History Social History Substance History: No History of Abuse Second Hand Smoke Exposure: Yes Smoking Status: Current every day smoker Tobacco Type: Cigarettes How Often Do You Have a Drink Containing Alcohol: 4 or more times a week Recent Travel in [facility] within the Last 8 Weeks: No Recent Out of Country Travel within the Last 8 Weeks: No Immunization History Tetanus Immunization: >5 Years Exam Narrative Exam Narrative: GENERAL: 62 y/o male in no apparent distress, thin SKIN: Focused skin assessment warm/dry. HEAD: Atraumatic. Normocephalic. EYES: Pupils equal and round. No scleral icterus. No injection or drainage. ENT: No nasal bleeding or discharge. Mucous membranes pink and moist. NECK: Trachea midline. CARDIOVASCULAR: Regular rate and rhythm. RESPIRATORY: No accessory muscle use. Clear to auscultation. Breath sounds equal bilaterally. GASTROINTESTINAL: Abdomen soft, non-tender, nondistended. MUSCULOSKELETAL: No obvious deformities. No clubbing. No cyanosis. No edema. NEUROLOGICAL: Awake and alert. Motor grossly within normal limits. Normal speech. Course Reevaluation(s) Reevaluation #1: CT shows no PE, multiple lung masses and mediastinal mass noted. This is likely source of patient's pain. Patient is wanting aggressive care. Will admit to the hospital for serial EKG and troponin and further evaluation Consultations Consultation #1: dr martin agrees to admit Initial Documented Vital Signs Temperature 98.4 F 12/28/17 10:43 Pulse Rate 82 12/28/17 10:43 Respiratory Rate 15 12/28/17 10:43 Blood Pressure 130/68 12/28/17 10:43 Pulse Oximetry 98 12/28/17 10:43 Last Documented Vital Signs Temperature 98.4 F 12/28/17 10:43 Pulse Rate 80 12/28/17 10:55 Respiratory Rate 15 12/28/17 10:55 Blood Pressure 130/72 12/28/17 10:55 Pulse Oximetry 100 12/28/17 10:55 Medical Decision Making MDM Narrative Medical decision making narrative: Will check blood work, imaging and dose with nitroglycerin and reevaluate Medical Screen Exam Complete: Yes Emergency Medical Condition: Yes Differential Diagnosis Differential Diagnosis: PE, musculoskeletal, cardiac, gastritis Lab Data Lab results reviewed: Yes I reviewed the patient's lab results. Result diagrams: 12/28/17 11:05 12/28/17 11:05 Lab Results 12/28/17 12/28/17 12/28/17 Range/Units 11:05 11:05 11:05 WBC 5.0 (4.0-11.0) th/mm3 RBC 4.42 L (4.50-5.90) mil/mm3 Hgb 14.5 (13.0-17.0) gm/dL Hct 40.5 (39.0-51.0) % MCV 91.7 (80.0-100.0) fL MCH 32.7 (27.0-34.0) pg MCHC 35.7 (32.0-36.0) % RDW 12.7 (11.6-17.2) % Plt Count 237 (150-450) th/mm3 MPV 7.2 (7.0-11.0) fL Neut % (Auto) 65.0 (16.0-70.0) % Lymph % (Auto) 21.5 (9.0-44.0) % Ada % (Auto) 9.5 H (0.0-8.0) % Eos % (Auto) 1.6 (0.0-4.0) % Baso % (Auto) 2.4 H (0.0-2.0) % Neut # (Auto) 3.3 (1.8-7.7) th/mm3 Lymph # (Auto) 1.1 (1.0-4.8) th/mm3 Ada # (Auto) 0.5 (0.0-0.9) th/mm3 Eos # (Auto) 0.1 (0.0-0.4) th/mm3 Baso # (Auto) 0.1 (0.0-0.2) th/mm3 WBC Differential . Differential Comment Auto diff final PT 9.5 L (9.8-11.6) sec INR 0.9 Ratio APTT 25.5 (23.4-31.7) sec Sodium 138 (136-145) meq/L Potassium 3.3 L (3.5-5.1) meq/L Chloride 102 (98-107) meq/L Carbon Dioxide 23.3 (21.0-32.0) meq/L Anion Gap 13 (5-15) meq/L BUN 9 (7-18) mg/dL Creatinine 0.70 (0.60-1.30) mg/dL Estimated GFR Greater than 89 (>89) mL/min Random Glucose 120 H (74-106) mg/dL Calcium 8.1 L (8.5-10.1) mg/dL Magnesium 1.9 (1.5-2.5) mg/dL Total Bilirubin 0.4 (0.2-1.0) mg/dL AST 22 (15-37) U/L ALT 20 (12-78) U/L Alkaline Phosphatase 71 (45-117) U/L Total Creatine Kinase 147 (39-308) U/L CK-MB (CK-2) 2.2 (0.5-3.6) ng/mL Troponin I Less than 0.02 L (0.02-0.05) ng/mL Total Protein 7.4 (6.4-8.2) g/dL Albumin 3.6 (3.4-5.0) g/dL Imaging Data Attestation: I personally reviewed and interpreted this imaging study as follows : Radiologist's impression: Chest X-Ray 12/28/17 10:53 CONCLUSION: Clear lungs. Chest CTA 12/28/17 11:04 CONCLUSION: 1. No renal calculus demonstrated. 2. Anterior mediastinal mass is modestly larger in the interim. 3. There is a new left chest wall mass in between the anterior portions of the left second and third ribs. 4. New spiculated nodule of the right lung apex of concern for a possible developing primary bronchogenic carcinoma. Discharge Plan Discharge Disposition Patient Disposition: 30 Still Patient Discharge Details Diagnosis: Chest pain, Mass of lung, Mass of mediastinum Physicians Team ED Provider: Concepcion Rashid Primary Care Provider: UNKNOWN, Attending Provider: Jf Martin Other Providers: Villa Ballard Status ED Status: Admitted Observation Patient
[2017-12-28 11:45] LABS: Baso # (Auto) 0.1 th/mm3 (0.0-0.2); Baso % (Auto) 2.4 % (0.0-2.0); Eos # (Auto) 0.1 th/mm3 (0.0-0.4); Eos % (Auto) 1.6 % (0.0-4.0); Hematocrit 40.5 % (39.0-51.0); Hemoglobin 14.5 gm/dL (13.0-17.0); Lymph # (Auto) 1.1 th/mm3 (1.0-4.8); Lymph % (Auto) 21.5 % (9.0-44.0); Mean Corpuscular HGB Conc 35.7 % (32.0-36.0); Mean Corpuscular Hemoglobin 32.7 pg (27.0-34.0); Mean Corpuscular Volume 91.7 fL (80.0-100.0); Mean Platelet Volume 7.2 fL (7.0-11.0); Mono # (Auto) 0.5 th/mm3 (0.0-0.9); Mono % (Auto) 9.5 % (0.0-8.0); Neut # (Auto) 3.3 th/mm3 (1.8-7.7); Platelet Count 237 th/mm3 (150-450); Red Blood Count 4.42 mil/mm3 (4.50-5.90); Red Cell Distribution Width 12.7 % (11.6-17.2)
[2017-12-28 11:54] LABS: Activated Partial Thrombo Time 25.5 sec (23.4-31.7); INR 0.9 Ratio; Prothrombin Time 9.5 sec (9.8-11.6)
[2017-12-28 12:10] LABS: Albumin 3.6 g/dL (3.4-5.0); Anion Gap 13 meq/L (5-15); Aspartate Aminotransferase 22 U/L (15-37); Blood Urea Nitrogen 9 mg/dL (7-18); Calcium 8.1 mg/dL (8.5-10.1); Carbon Dioxide 23.3 meq/L (21.0-32.0); Chloride 102 meq/L (98-107); Glomerular Filtration Rate Greater Than 89 mL/min (>89); Glucose,Random 120 mg/dL (74-106); Magnesium 1.9 mg/dL (1.5-2.5); Potassium 3.3 meq/L (3.5-5.1); Sodium 138 meq/L (136-145)
[2017-12-28 12:11] LABS: Alanine Aminotransferase 20 U/L (12-78)
[2017-12-28 12:15] LABS: Alkaline Phosphatase 71 U/L (45-117); Creatine Kinase 147 U/L (39-308); Total Protein 7.4 g/dL (6.4-8.2)
[2017-12-28 12:27] LABS: Creatine Kinase MB 2.2 ng/mL (0.5-3.6)
--- NOTE | 2017-12-28 14:16 | CT ---
EXAM DATE: 12/28/2017 2:03 PM EST AGE/SEX: 62 years / Male INDICATIONS: Left sided chest pain today. CLINICAL DATA: This is the patient's initial encounter. Patient reports that signs and symptoms have been present for 1 day and indicates a pain score of 7/10. MEDICAL/SURGICAL HISTORY: Carcinoma, colon. Hypertension. None. RADIATION DOSE: 7.43 CTDI (mGy) [place] [facility] [place]10/2016. . TECHNIQUE: Volumetric scanning was performed using a multi-row detector CT scanner during bolus infu dominique of 65 ml Omnipaque 350 (iohexol) nonionic water-soluble contrast as a single exam dose. The calvin a was post processed with a variety of visualization algorithms including full volume maximum intensi ty projection and sliding thin slab reformation. Using automated exposure control and adjustment of the mA and/or kV according to patient size, radiation dose was kept as low as reasonably achievable t o obtain optimal diagnostic quality images. DICOM format image data is available electronically for review and comparison. FINDINGS: There is no pulmonary embolus. There is a lobulated, partially calcified soft tissue mass of the anterior mediastinum that is slight ly larger in the interim, currently 4.1 x 4.6 cm in greatest transaxial dimension. In between the ant erior portions of the second and third ribs is a soft tissue chest wall mass that measures approximat sushil 2.5 x 4.2 x 1.8 cm in size. I don't clearly see any associated rib destruction. Mildly masslike spiculated nodule has developed of the right lung apex measuring 0.8 x 1.5 cm in size . There is mild emphysema. No acute infiltrate. No pleural effusion or pneumothorax. CONCLUSION: 1. No renal calculus demonstrated. 2. Anterior mediastinal mass is modestly larger in the interim. 3. There is a new left chest wall mass in between the anterior portions of the left second and third ribs. 4. New spiculated nodule of the right lung apex of concern for a possible developing primary broncho genic carcinoma. Electronically signed by: Fitz Urena MD 12/28/2017 2:15 PM EST
--- NOTE | 2017-12-28 14:19 | ECG ---
Date Performed: 12/28/2017 Time Performed: 10:39:02 PTAGE: 62 years EKG: Sinus rhythm SEPTAL MYOCARDIAL INFARCTION ABNORMAL ECG No significant change from prior electrocardiogram. PREVIOUS TRACING : 09/11/2016 04.59 DOCTOR: Kiran Elizondo Interpretating Date/Time 12/28/2017 14:18:45
--- NOTE | 2017-12-28 16:38 | P.HP ---
History of Present Illness Primary Care Physician: UNKNOWN History of Present Illness: 62-year-old white male being admitted for chest pain. Patient reports being in his usual state of health until sometime last night when he woke up in chest pain which gradually got worse. Says it is worse chest pain was 8/10. Says positioning did not change nature of chest pain. Reports an aching nature. Denies taking any medications to treat it. Reports having some nausea but no vomiting. Denies any diaphoresis or fevers. Says he called 911 this morning when the pain was unrelenting. Says he got morphine which helped, as well as baby aspirin in the ambulance. EKG which I independently reviewed shows no acute findings concerning for ischemia or infarction. Blood work overall is unremarkable except for very mild hypokalemia. CTA of the chest is unremarkable for any PE but there are lesions concerning for metastatic disease everywhere. Patient reports having history of colon cancer metastases to the heart and lungs. Says he underwent 6-8 months of chemotherapy in [place] with [place] [facility] with an oncologist. Says he was recommended to undergo further treatment but says he himself did not want to, is at the bedside says he did not like the side effects. Patient moved to [facility] about a year ago and says he has not followed up with an oncologist since then. Review of Systems All other systems reviewed negative except as stated in HPI PMFSH - History History Provided By: Patient, Regulatory Services Consultant / EMT - Medical History Medical History: Medical History (Last Reviewed 12/28/17 @ 16:36 by Jf Martin MD) Colon cancer HTN (hypertension) History of chemotherapy Port-A-Cath in place - Family History Family History: Family History (Last Updated 12/28/17 @ 16:36 by Jf Martin MD) Other Patient denies significant medical history - Social History I have reviewed the patient's Social History: Yes - Tobacco History Second Hand Smoke Exposure: Yes Tobacco Use In Past 30 Days: Yes Smoking Status: Current every day smoker Tobacco Type: Cigarettes - Alcohol History How Often Do You Have a Drink Containing Alcohol: 4 or more times a week - Substance Use History Substance History: No History of Abuse - Travel History Recent Travel in the [facility] Within the Last 8 Weeks: No Recent Travel Out of the Country Within the Last 8 Weeks: No - Immunization History Tetanus Immunization: >5 Years Medications and Allergies Active Medications: Active Medications Sodium Chloride (Ns Flush) 2 ml IV.FLUSH UNSCH PRN PRN Reason: FLUSH AFTER USING IV ACCESS Last Admin: 12/28/17 11:13 Dose: 2 ml Sodium Chloride (Ns Flush) 2 ml IV.FLUSH PRN PRN PRN Reason: FLUSH AFTER USING IV ACCESS Sodium Chloride (Ns Flush) 2 ml IV.FLUSH BID FRANK Allergies Allergy/AdvReac Type Severity Reaction Status Date / Time No Known Allergies Allergy Verified 12/28/17 10:56 Home Medications Medication Instructions Recorded Confirmed Type lisinopril 10 mg PO DAILY 12/28/17 12/28/17 History Exam Vital signs: Vital Signs 12/28/17 10:43 12/28/17 10:53 12/28/17 10:55 Temperature 98.4 F Pulse Rate 82 80 Respiratory Rate 15 15 Blood Pressure 130/68 130/72 Pulse Oximetry 98 98 100 Intake & Output 12/27/17 12/28/17 12/28/17 18:59 06:59 18:59 Weight 60 kg Narrative: VS: afebrile GENERAL: Sitting up in bed, awake and alert, no acute distress SKIN: Warm and dry. Has an obvious port over his left chest. EYES: No scleral icterus. No injection or drainage. ENT: No nasal bleeding or discharge. Mucous membranes pink and moist. CARDIOVASCULAR: Regular rate and rhythm. no murmurs RESPIRATORY: No accessory muscle use. Clear to auscultation. Breath sounds equal bilaterally. GASTROINTESTINAL: Abdomen soft, non-tender, nondistended. Extremities: No clubbing, cyanosis, or edema. No obvious deformities. MUSCULOSKELETAL: grossly intact ROM with 4/5 strength in upper and lower extremities proximally; adequate muscle bulk and tone for age and habitus NEUROLOGICAL: Awake and alert. No obvious cranial nerve deficits. No facial droop nor slurred speech noted. PSYCHIATRIC: Appropriate mood and affect; insight and judgment normal. Results - Labs CBC & Chem 7: 12/28/17 11:05 12/28/17 11:05 Labs: Laboratory Results - last 24 hr 12/28/17 12/28/17 12/28/17 11:05 11:05 11:05 WBC 5.0 RBC 4.42 L Hgb 14.5 Hct 40.5 MCV 91.7 MCH 32.7 MCHC 35.7 RDW 12.7 Plt Count 237 MPV 7.2 Neut % (Auto) 65.0 Lymph % (Auto) 21.5 Juncos % (Auto) 9.5 H Eos % (Auto) 1.6 Baso % (Auto) 2.4 H Neut # (Auto) 3.3 Lymph # (Auto) 1.1 Juncos # (Auto) 0.5 Eos # (Auto) 0.1 Baso # (Auto) 0.1 WBC Differential . Differential Comment Auto diff final PT 9.5 L INR 0.9 APTT 25.5 Sodium 138 Potassium 3.3 L Chloride 102 Carbon Dioxide 23.3 Anion Gap 13 BUN 9 Creatinine 0.70 Estimated GFR Greater than 89 Random Glucose 120 H Calcium 8.1 L Magnesium 1.9 Total Bilirubin 0.4 AST 22 ALT 20 Alkaline Phosphatase 71 Total Creatine Kinase 147 CK-MB (CK-2) 2.2 Troponin I Less than 0.02 L Total Protein 7.4 Albumin 3.6 - Imaging Impressions Chest X-Ray 12/28/17 10:53 CONCLUSION: Clear lungs. Chest CTA 12/28/17 11:04 CONCLUSION: 1. No renal calculus demonstrated. 2. Anterior mediastinal mass is modestly larger in the interim. 3. There is a new left chest wall mass in between the anterior portions of the left second and third ribs. 4. New spiculated nodule of the right lung apex of concern for a possible developing primary bronchogenic carcinoma. Caprini VTE Risk Assessment Caprini VTE Risk Assessment: Moderate/High Risk (score >= 2) Caprini Risk Assessment Model: Point Value = 1 Point Value = 2 Point Value = 3 Point Value = 5 Age 41-60 Minor surgery BMI > 25 kg/m2 Swollen legs Varicose veins or History of unexplained or recurrent spontaneous Oral contraceptives or hormone replacement Sepsis (< 1 month) Serious lung disease, including pneumonia (< 1 month) Abnormal pulmonary function Acute myocardial infarction Congestive heart failure (< 1 month) History of inflammatory bowel disease Medical patient at bed rest Age 61-74 Arthroscopic surgery Major open surgery (> 45 min) Laparoscopic surgery (> 45 min) Malignancy Confined to bed (> 72 hours) Immobilizing plaster cast Central venous access Age >= 75 History of VTE Family history of VTE Factor V Leiden Prothrombin [id number] Lupus anticoagulant Anticardiolipin antibodies Elevated serum homocysteine Heparin-induced thrombocytopenia Other congenital or acquired thrombophilia Stroke (< 1 month) Elective arthroplasty Hip, pelvis, or leg fracture Acute spinal cord injury (< 1 month) Prophylaxis Regimen: Total Risk Factor Score Risk Level Prophylaxis Regimen 0-1 Low Early ambulation 2 Moderate Order ONE of the following: *Sequential Compression Device (SCD) *Heparin 5000 units SQ BID 3-4 Higher Order ONE of the following medications: *Heparin 5000 units SQ TID *Enoxaparin/Lovenox 40 mg SQ daily (WT < 150 kg, CrCl > 30 mL/min) *Enoxaparin/Lovenox 30 mg SQ daily (WT < 150 kg, CrCl > 10-29 mL/min) *Enoxaparin/Lovenox 30 mg SQ BID (WT < 150 kg, CrCl > 30 mL/min) AND/OR *Sequential Compression Device (SCD) 5 or more Highest Order ONE of the following medications: *Heparin 5000 units SQ TID (Preferred with Epidurals) *Enoxaparin/Lovenox 40 mg SQ daily (WT < 150 kg, CrCl > 30 mL/min) *Enoxaparin/Lovenox 30 mg SQ daily (WT < 150 kg, CrCl > 10-29 mL/min) *Enoxaparin/Lovenox 30 mg SQ BID (WT < 150 kg, CrCl > 30 mL/min) AND *Sequential Compression Device (SCD) Assessment and Plan - Plan 62-year-old white male admitted for chest pain. Chest pain Most likely from cancer metastases which the patient has not been compliant in following up with Consulting oncology as below Given strong cardiac risk factors with smoking, will trend enzymes and do a stress test tomorrow morning Aspirin daily Lipid profile Echocardiogram colon CA - oncology consulted; likely clear for outpt follow up COPD - albuterol prn SOB lovenox Discharge Planning: Anticipate discharge tomorrow if stress test is negative and oncology is okay with outpatient follow-up.
[2017-12-28] MEDS ORDERED: Ketorolac Inj 30 MG/ML (IVP) Vial IV.PUSH PRN (16:41)
[2017-12-28 17:08] LABS: Chol/HDL Ratio 2.13 Ratio; HDL Cholesterol 80.2 mg/dL (40.0-60.0)
--- NOTE | 2017-12-28 21:12 | ECG ---
Date Performed: 12/28/2017 Time Performed: 17:20:08 PTAGE: 62 years EKG: Sinus rhythm NORMAL ECG No significant change from prior electrocardiogram. PREVIOUS TRACING : 12/28/2017 10.39 DOCTOR: Kiran Elizondo Interpretating Date/Time 12/28/2017 21:12:04
--- NOTE | 2017-12-28 23:00 | MB ---
cc: Drew Ballard MD DATE: 12/28/2017 REASON FOR CONSULTATION: Consult requested by hospitalist for evaluation of metastatic colon cancer. HISTORY OF PRESENT ILLNESS: Zackery is a 62-year-old male. He was diagnosed with colon cancer with lung metastases about 2 years ago. He stated he had a large lung mass, which they removed, and pathology report showed it was colon cancer. They put in an Infusaport. He was treated with some unknown chemotherapy by [facility] in [place]. He stated that he had 6 months of chemotherapy. Due to the side effects, he decided not to pursue any further treatment. Also, he mentioned that he used to live with his brother at that time and he had an argument with him, so he decided to move to [facility]. The patient moved to [facility] about a year and a half ago. He has not established with any of the local physicians. The patient did come in to the emergency room in 08/2016 at [place] complaining of chest pain. He had a CT scan of the chest, which showed multiple lung lesions. He was advised to be followed up by an oncologist and he was discharged to home. The patient now has come back again almost 16 months later with a similar complaint. He is also complaining of weight loss, cough and shortness of breath. The patient had a CT angiogram of the chest, which does not show any pulmonary embolism, but he has interval enlargement of the lung lesions consistent with progressive disease. The patient is complaining of weakness, tiredness, fatigue and dyspnea on exertion. His appetite is poor. He is losing weight. The rest of the review of systems is negative. PAST MEDICAL HISTORY: 1. Colon cancer with lung metastasis diagnosed 2 years ago and had chemotherapy in [place]. 2. Hypertension. PAST SURGICAL HISTORY: Colonoscopy, lung mass resection and Infusaport placement. ALLERGIES: None. MEDICATIONS PRIOR TO COMING TO THE HOSPITAL: Lisinopril. FAMILY HISTORY: None for malignancy. SOCIAL HISTORY: The patient smoked cigarettes, 1 pack a day. He also drinks alcohol, 1 drink every day. PHYSICAL EXAMINATION: GENERAL: A cachectic-appearing white male, in no apparent distress. VITAL SIGNS: Temperature 98.1, heart rate is 70, blood pressure 130/65, O2 saturation 95% on room air. HEENT: PERRLA. EOMI. Anicteric. NECK: No lymphadenopathy noted. LUNGS: Decreased breath sounds on both sides. HEART: Regular rate and rhythm. ABDOMEN: Soft. EXTREMITIES: No pedal edema. NEUROLOGIC: Awake, alert, oriented x3. SKIN: No significant lesions noted. ASSESSMENT: 1. History of colon cancer with lung metastasis diagnosed 2 years ago, status post unknown chemotherapy for 6 months with [facility] in [place]. 2. Chest pain due to progressive lung metastasis. 3. There is a 1.5 cm right upper lobe lung mass suspicious for bronchogenic carcinoma given his history of heavy cigarette smoking. PLAN: I have reviewed his available records. I have discussed with the patient regarding the CT angiogram of the chest findings. He has lobulated calcified soft tissue mass in the anterior mediastinum that is slightly larger compared to the previous CT scan from 08/2016, currently measures 4.6 cm. Also, there is a soft tissue chest wall mass between the second and third rib approximately 4.2 cm in size. The patient said that he has known tumor in his chest and for that he had a resection of one of the masses. He stated that was colon cancer. His previous records are not available at the present time. He also has 1.5 cm right upper lobe lung mass, which could be a new primary lung cancer. I discussed with him regarding whether he wants to have chemotherapy. His answer was yes and he does not want to . He wanted to try chemotherapy. I advised him that we need to get records from [place] before we can discuss with him regarding chemotherapy option. This can be arranged as an outpatient. He does not require admission to the hospital for the malignancy. This can be worked up as an outpatient. Upon discharge, please give him an appointment to the Oncology Center. Thank you for asking my opinion. MD VANDA Roland/scott , 09:42 PM , 09:55 PM BRITTNEY
[2017-12-29] MEDS ORDERED: Enoxaparin Inj 30 MG/0.3 ML Syringe SQ SCH (09:00)
[2017-12-29] MEDS ORDERED: Regadenoson Inj 0.4 MG/5 ML Syringe IV.PUSH ONE (09:17)
--- NOTE | 2017-12-29 10:29 | NM ---
EXAM DATE: 12/29/2017 10:25 AM EST AGE/SEX: 62 years / Male INDICATIONS:Angina. . Mid chest pain for one day. CLINICAL DATA: This is the patient's initial encounter. Patient reports that signs and symptoms have been present for 1 day and indicates a pain score of 5/10. MEDICAL/SURGICAL HISTORY: Carcinoma, colon. Hypertension. None. COMPARISON: No prior exams available for comparison. No external comparison. DOSE: 8.5 mCi Tc 99m Myoview at rest 25.5 mCi [id number] at stress 0.4 mg Lexiscan STRESS SYMPTOMS: Short of breath. EJECTION FRACTION: 61 % TECHNIQUE: The patient underwent pharmacologic stress with infusion of prescribed dose. Continuous ECG tracing was monitored during stress. Gated SPECT imaging was performed after stress and conventi onal SPECT imaging was performed at rest. The examination was performed on a SPECT/CT scanner, both attenuation and non-corrected datasets were reviewed. FINDINGS: Distribution: The maximum perfused segment at stress is in the inferior wall. Perfusion Study: The pattern of perfusion at stress is within normal limits. Gated Study: There are intact wall motion and wall thickening without hypokinetic or dyskinetic segm ents. The ejection fraction is calculated at 61%. RISK CATEGORY: Low (<1% Annual Motality Rate) CONCLUSION: 1. No reversible perfusion defects are identified to suggest stress-induced myocardial ischemia. Electronically signed by: Williams Palma MD 12/29/2017 10:27 AM EST
[2017-12-29 11:45] VITALS: BP 133/73; O2SAT 98
[2017-12-29 12:58] LABS: Carcinoembryonic Antigen 2.2 ng/mL (0.2-5.0)
[2017-12-29] MEDS ORDERED: Ketorolac 10 MG Tablet PO PRN (15:33)
--- NOTE | 2017-12-29 15:40 | P.DS ---
Date of admission: 12/28/17 15:49 Primary care physician: UNKNOWN Attending physician on discharge: Otilio Mckeon Anticipated date of discharge: 12/29/17 Brief History from admission: 62-year-old white male being admitted for chest pain. Patient reports being in his usual state of health until sometime last night when he woke up in chest pain which gradually got worse. Says it is worse chest pain was 8/10. Says positioning did not change nature of chest pain. Reports an aching nature. Denies taking any medications to treat it. Reports having some nausea but no vomiting. Denies any diaphoresis or fevers. Says he called 911 this morning when the pain was unrelenting. Says he got morphine which helped, as well as baby aspirin in the ambulance. EKG which I independently reviewed shows no acute findings concerning for ischemia or infarction. Blood work overall is unremarkable except for very mild hypokalemia. CTA of the chest is unremarkable for any PE but there are lesions concerning for metastatic disease everywhere. Patient reports having history of colon cancer metastases to the heart and lungs. Says he underwent 6-8 months of chemotherapy in [place] with [place] [facility] with an oncologist. Says he was recommended to undergo further treatment but says he himself did not want to, is at the bedside says he did not like the side effects. Patient moved to [facility] about a year ago and says he has not followed up with an oncologist since then. Patient update on day of discharge: Patient is seen lying quietly in bed. Reports mild pain through chest, but no specific left-sided pain or radiating pain. No shortness of breath or heart palpitations. DS: Diagnosis - Discharge Diagnosis (1) Chest pain Status: Acute (2) Mass of lung Status: Acute (3) Mass of mediastinum Status: Acute DS: Medications - Discharge Medications Prescriptions: ketorolac 10 mg PO Q6H PRN #15 tab PRN Reason: Acute Pain DS: Summary Hospital Course: 62-year-old white male admitted for chest pain. Most likely from cancer metastases which the patient has not been compliant in following up with oncology. Evaluated in hospital by Dr. Jha who recommends outpatient follow-up. Due to strong cardiac risk factors, stress test was done. Negative. - Time Spent with Patient Total time spent providing and/or coordinating discharge services: Less than 30 minutes Exam Vital signs: Vital Signs 12/28/17 16:00 12/28/17 17:45 12/28/17 18:00 Temperature Pulse Rate 87 68 Respiratory Rate 18 18 Blood Pressure 156/75 H 150/70 H Pulse Oximetry 99 12/28/17 20:00 12/28/17 20:19 12/29/17 00:00 Temperature 98.1 F 98.0 F Pulse Rate 70 66 Respiratory Rate 18 18 Blood Pressure 130/65 123/68 Pulse Oximetry 95 99 98 12/29/17 03:49 12/29/17 07:56 12/29/17 11:44 Temperature 98.2 F 98.0 F 98.0 F Pulse Rate 66 68 68 Respiratory Rate 18 12 12 Blood Pressure 132/67 126/67 133/73 Pulse Oximetry 97 97 98 Intake & Output 12/28/17 12/29/17 12/29/17 18:59 06:59 18:59 Weight 60 kg Other: Date of Last Bowel Movement 12/29/17 Narrative: GENERAL: Very thin, well-developed adult male in no obvious distress. SKIN: Warm and dry. HEAD: Atraumatic. Normocephalic. CARDIOVASCULAR: Regular rate and rhythm. Port noted in left chest wall. RESPIRATORY: No accessory muscle use. Clear to auscultation. Breath sounds equal bilaterally. GASTROINTESTINAL: Abdomen soft, non-tender, non-distended. Positive bowel sounds. MUSCULOSKELETAL: Extremities without clubbing, cyanosis, or edema. No obvious deformities. NEUROLOGICAL: Awake and alert. No obvious cranial nerve deficits. Motor grossly within normal limits. Normal speech. PSYCHIATRIC: Appropriate mood and affect; insight and judgment good. Results Procedures completed during hospitalization: Lexiscan Labs on day of discharge: Labs from last 24 hours 12/29/17 12/28/17 12/28/17 11:10 23:21 17:00 Troponin I Less than 0.02 L Less than 0.02 L Less than 0.02 L Triglycerides Cholesterol LDL Cholesterol, Calc HDL Cholesterol Cholesterol/HDL Ratio Carcinoembryonic Ag 2.2 12/28/17 11:05 Troponin I Triglycerides 144 Cholesterol 171 LDL Cholesterol, Calc 62 HDL Cholesterol 80.2 H Cholesterol/HDL Ratio 2.13 Carcinoembryonic Ag - Impressions ITS Impressions Chest X-Ray 12/28/17 10:53 CONCLUSION: Clear lungs. Chest CTA 12/28/17 11:04 CONCLUSION: 1. No renal calculus demonstrated. 2. Anterior mediastinal mass is modestly larger in the interim. 3. There is a new left chest wall mass in between the anterior portions of the left second and third ribs. 4. New spiculated nodule of the right lung apex of concern for a possible developing primary bronchogenic carcinoma. Myocardial Perfusion Scan Nuc Med 12/29/17 00:00 CONCLUSION: 1. No reversible perfusion defects are identified to suggest stress-induced myocardial ischemia. Discharge Plan - Discharge Disposition Patient Disposition: Discharge Home - Discharge Condition Condition: Stable - Discharge Order Discharge Orders: Discharge Order (Routine); Ordered 12/29/17 Ordered By: Anna Qiu - Physicians Team Primary Care Provider: UNKNOWN, Attending Provider: Otilio Mckeon Other Providers: Villa Ballard MD
[2017-12-29 16:09] VITALS: PULSE 65; RESP 16; TEMP 97.7
--- NOTE | 2017-12-29 17:43 | ECHRPT ---
Indication: CHEST PAIN CONCLUSIONS Normal left ventricular size. Mild concentric left ventricular hypertrophy. The left ventricular systolic function is low normal with an estimated ejection fraction in the rang e of 50- 55%. BP: / HR: Rhythm: Sinus MEASUREMENTS (Male / Female) Normal Values Technical Quality:Fair 2D ECHO LV Diastolic Diameter PLAX 3.6 cm 4.2 - 5.9 / 3.9 - 5.3 cm LV Systolic Diameter PLAX 3.0 cm IVS Diastolic Thickness 1.1 cm 0.6 - 1.0 / 0.6 - 0.9 cm LVPW Diastolic Thickness 1.1 cm 0.6 - 1.0 / 0.6 - 0.9 cm LV Relative Wall Thickness 0.6 RV Internal Dim ED PLAX 2.4 cm LVOT Diameter 2.2 cm Aortic Root Diameter 3.4 cm LA Systolic Diameter LX 3.3 cm 3.0 - 4.0 / 2.7 - 3.8 cm M-MODE AV Cusp Separation MM 1.9 cm DOPPLER AV Peak Velocity 114.0 cm/s AV Peak Gradient 5.2 mmHg AV Mean Gradient 3.0 mmHg AV Velocity Time Integral 19.5 cm LVOT Peak Velocity 91.7 cm/s LVOT Peak Gradient 3.4 mmHg LVOT Velocity Time Integral 17.8 cm AV Area Cont Eq vti 3.5 cm AV Area Cont Eq pk 3.1 cm Mitral E Point Velocity 54.8 cm/s Mitral A Point Velocity 78.0 cm/s Mitral E to A Ratio 0.7 LV E' Lateral Velocity 7.6 cm/s Mitral E to LV E' Lateral Ratio 7.2 LV E' Septal Velocity 7.6 cm/s Mitral E to LV E' Septal Ratio 7.2 PV Peak Velocity 45.1 cm/s PV Peak Gradient 0.8 mmHg FINDINGS LEFT VENTRICLE Normal left ventricular size. Mild concentric left ventricular hypertrophy. The left ventricular systolic function is low normal with an estimated ejection fraction in the rang e of 50- 55%. RIGHT VENTRICLE Normal right ventricular size and systolic function. LEFT ATRIUM The left atrial size is normal. RIGHT ATRIUM The right atrial size is normal. ATRIAL SEPTUM No atrial level shunt is demonstrated by color flow Doppler interrogation. AORTA The aortic root and proximal ascending aorta are normal in size on limited imaging. MITRAL VALVE Structurally normal mitral valve. No mitral valve stenosis or regurgitation. AORTIC VALVE Trileaflet aortic valve. No aortic valve stenosis or regurgitation. TRICUSPID VALVE Structurally normal tricuspid valve. No tricuspid valve stenosis or regurgitation. PULMONARY VALVE The pulmonary valve is not well visualized. VESSELS The inferior vena cava is normal in size. PERICARDIUM No pericardial effusion. Gus Coyne MD, FACC (Electronically Signed) Final Date:29 December 2017 17:42
== END 2017-12-29 17:33 | disposition home or self-care (01) ==
LOC: NEDA 10:07 → NEPC 10:07 → NEPHCDU 17:57
PROVIDERS: ADMIT Family Medicine; ATTEND Family Medicine
CPT/HCPCS: 71010; 71045; 71275; 78452; 80053; 80061; 82378; 82550; 82552; 83735; 84484; 85025; 85610; 85730; 93005; 93017; 93306; 99285; A9502; G0378; J1650; J2785; Q9967